=== PATIENT | female | born 1980 | race Caucasian/White ===

== ENCOUNTER 2016-10-16 16:06 | Emergency (ER) | payer MEDICAID, OTHER ==
--- NOTE | 2016-10-16 16:24 | ER Document Report ---
ED Medical Screen (RME) - General Stated Complaint: JAW PAIN/SWELLING Notes: Patient is a 35-year-old female presents emergency Department complaining of difficulty swallowing/sore throat for the past 2 weeks but is worse over the past 7 days. Denies any fevers, chills. Patient states that she never received a MMR vaccine. Neck with range of motion. Patient nontoxic looking. I have greeted and performed a rapid initial assessment of this patient. A comprehensive ED assessment and evaluation of the patient, analysis of test results and completion of the medical decision making process will be conducted by additional ED providers. Physical Exam - Vital signs Vitals: Temp Pulse Resp BP Pulse Ox 98.4 F 84 16 141/74 H 95 10/16/16 16:17 10/16/16 16:17 10/16/16 16:17 10/16/16 16:17 10/16/16 16:17 Course - Vital Signs Vital signs: Temp Pulse Resp BP Pulse Ox 98.4 F 84 16 141/74 H 95 10/16/16 16:17 10/16/16 16:17 10/16/16 16:17 10/16/16 16:17 10/16/16 16:17
--- NOTE | 2016-10-16 18:26 | ER Document Report ---
ED Flu Like - General Chief Complaint: Sore Throat Stated Complaint: JAW PAIN/SWELLING Time seen by provider: 17:50 Mode of Arrival: Ambulatory Information source: Patient Notes: 35-year-old female presents to ED for cough runny nose postnasal drip with sore throat for 2 weeks she states is getting worse in the last 7 days. No fevers. Last menstrual period was TRAVEL OUTSIDE OF THE [place] IN LAST 30 DAYS: No - HPI Onset: Other - 2 weeks Timing/Duration: Constant Quality of pain: Achy, Other - Sore throat Severity: Moderate Pain Level: 3 CO exposure: No Associated symptoms: Body/muscle aches, Rhinnorhea, Sinus pain/drainage, Sore throat Similar symptoms previously: Yes Recently seen / treated by doctor: No - Related Data Allergies/Adverse Reactions: latex Allergy (Verified 10/16/16 16:22) pantoprazole [From Protonix] Allergy (Verified 10/16/16 16:22) Past Medical History - General Information source: Patient - Social History Smoking Status: Never Smoker Cigarette use (# per day): No Chew tobacco use (# tins/day): No Smoking Education Provided: No Frequency of alcohol use: None Drug Abuse: None Family History: Reviewed & Not Pertinent Patient has suicidal ideation: No Patient has homicidal ideation: No - Past Medical History Cardiac Medical History: Reports: None Pulmonary Medical History: Reports: None EENT Medical History: Reports: None Neurological Medical History: Reports: None Endocrine Medical History: Reports: None Renal/ Medical History: Reports: None Malignancy Medical History: Reports: None GI Medical History: Reports: None Musculoskeltal Medical History: Reports None Skin Medical History: Reports None Psychiatric Medical History: Reports: None Traumatic Medical History: Reports: None Infectious Medical History: Reports: None Surgical Hx: Negative Past Surgical History: Reports: None Review of Systems - Review of Systems Constitutional: Recent illness EENT: Nose discharge, Sinus discharge, Throat pain, Difficulty swallowing Cardiovascular: No symptoms reported Respiratory: No symptoms reported Gastrointestinal: No symptoms reported Genitourinary: No symptoms reported Female Genitourinary: No symptoms reported Musculoskeletal: No symptoms reported Skin: No symptoms reported Hematologic/Lymphatic: No symptoms reported Neurological/Psychological: No symptoms reported -: Yes All other systems reviewed and negative Physical Exam - Vital signs Vitals: Temp Pulse Resp BP Pulse Ox 98.4 F 84 16 141/74 H 95 10/16/16 16:17 10/16/16 16:17 10/16/16 16:17 10/16/16 16:17 10/16/16 16:17 Interpretation: Normal - General General appearance: Appears well, Alert - HEENT Head: Normocephalic, Atraumatic Eyes: Normal Pupils: PERRL Ears: Normal External canal: Normal Tympanic membrane: Normal Sinus: Normal Nasal: Purulent discharge, Swelling Mouth/Lips: Normal Mucous membranes: Normal Pharynx: Post nasal drainage. No: Erythema, Exudate, Peritonsillar abscess, Tonsillar hypertrophy, Uvular edema, Potential airway comprom. Neck: Normal - Respiratory Respiratory status: No respiratory distress Chest status: Nontender Breath sounds: Nonproductive cough Chest palpation: Normal - Cardiovascular Rhythm: Regular Heart sounds: Normal auscultation Murmur: No - Abdominal Inspection: Normal Distension: No distension Bowel sounds: Normal Tenderness: Nontender Organomegaly: No organomegaly - Back Back: Normal, Nontender - Extremities General upper extremity: Normal inspection, Nontender, Normal color, Normal ROM , Normal temperature General lower extremity: Normal inspection, Nontender, Normal color, Normal ROM , Normal temperature, Normal weight bearing. No: Arash's sign - Neurological Neuro grossly intact: Yes Cognition: Normal Orientation: AAOx4 [place] Coma Scale Eye Opening: Spontaneous [place] Coma Scale Verbal: Oriented [place] Coma Scale Motor: Obeys Commands [place] Coma Scale Total: 15 Speech: Normal Motor strength normal: LUE, RUE, LLE, RLE Sensory: Normal - Psychological Associated symptoms: Normal affect, Normal mood - Skin Skin Temperature: Warm Skin Moisture: Dry Skin Color: Normal Course - Re-evaluation Re-evalutation: 10/16/16 18:[address] Thomas as the patient states that the right side of her face is swollen. He states there might be minimal swelling but nothing of concern discussed limiting drops and Cipro can do with the patient. Patient verbalized understanding. - Vital Signs Vital signs: Temp Pulse Resp BP Pulse Ox 98.4 F 84 16 141/74 H 95 10/16/16 16:17 10/16/16 16:17 10/16/16 16:17 10/16/16 16:17 10/16/16 16:17 Discharge - Discharge Clinical Impression: Upper respiratory infection Qualifiers: URI type: unspecified URI Qualified Code(s): J06.9 - Acute upper respiratory infection, unspecified Condition: Stable Disposition: HOME, SELF-CARE Instructions: Family Physicians / Practices Additional Instructions: UPPER RESPIRATORY ILLNESS: You have a viral infection of the respiratory passages -- a "cold." This common infection causes nasal congestion, drainage, and often sore throat and cough. It is highly contagious. The disease usually lasts about 10 to 14 days. There is no "cure" for the viral infection -- it must run its course. If there is a complication, such as bacterial infection in the nose, sinuses, middle ear, or bronchial tubes, antibiotics may be required. The antibiotics won't affect the virus. Drink plenty of fluids. A humidifier may help. An expectorant medication or decongestant may make you more comfortable. Use acetaminophen or ibuprofen for fever or aches. See the doctor if fever persists over two days, if there is any significant worsening of your symptoms, or if you simply fail to improve as expected. DECONGESTANT MEDICATION: A decongestant medicine has been suggested. Often this medicine is combined in the same tablet with an antihistamine or expectorant. This type of medicine is helpful in treating a bad cold or sinus condition, as well as in treatment of the nasal congestion of hay fever. It is not of much benefit for lung infections. Decongestant medicines are related to stimulants. They can cause an increase in blood pressure and heart rate. Persons with heart disease and high blood pressure should not take decongestants without discussing this with the physician. If you develop palpitations, chest pain, headache, or tremors, stop the medicine and consult your physician. COUGH-SUPPRESSANT & EXPECTORANT MEDICATION: You are to use a cough medication as needed for relief of symptoms. This medicine is a combination of an expectorant (to make the mucous thinner and more easily "coughed up") and a cough suppressant (to reduce the frequency of coughing). The cough-suppressant medicine is related to narcotics. You may experience mild nausea and sleepiness. Some patients who are very sensitive to narcotics may have stomach pain from this medicine. Taking the medicine with food reduces these side effects. Do not drive or work with machinery until you know how this medicine affects you. The expectorant should have no side effects. Iodine-containing expectorants (such as organidin) should not be taken by persons with active thyroid disease unless approved by your doctor. Call the doctor if you develop shortness of breath, hives, rash, itching, lightheadedness, or severe nausea and vomiting. USE OF ACETAMINOPHEN (Tylenol): Acetaminophen may be taken for pain relief or fever control. It's much safer than aspirin, offering a wider range of "safe" dosages. It is safe during . Some brand names are Tylenol, Panadol, Datril, Anacin 3, Tempra, and Liquiprin. Acetaminophen can be repeated every four hours. The following are maximum recommended dosages: >89 pounds or adults 650 mg to 900 mg Acetaminophen can be repeated every four hours. Maximum dose not to exceed 4000 mg a day. SMOKING: If you smoke, you should stop smoking. The tar and chemicals in cigarette smoke are harmful. Smoking has been shown to cause: emphysema chronic bronchitis lung cancer mouth and throat cancer stomach and pancreas cancer premature aging defects In addition, smoking increases ear and lung infections in children of smokers. FOLLOW-UP CARE: If you have been referred to a physician for follow-up care, call the physician s office for an appointment as you were instructed or within the next two days. If you experience worsening or a significant change in your symptoms, notify the physician immediately or return to the Emergency Department at any time for re-evaluation. Forms: Elevated Blood Pressure, Return to Work
[2016-10-16 19:23] VITALS: BP 138/74
== END 2016-10-16 19:00 | disposition home or self-care (01) ==
LOC: ER 16:06
DX: J06.9 Acute upper respiratory infection, unspecified (principal); J02.9 Acute pharyngitis, unspecified; R68.84 Jaw pain
CPT/HCPCS: 87070; 87804; 87880; 99283

== ENCOUNTER 2018-09-02 14:57 | Emergency (ER) | payer SELFPAY ==
--- NOTE | 2018-09-02 17:21 | ER Document Report ---
ED Extremity Problem, Lower - General Chief Complaint: Leg Pain Stated Complaint: LEG PAIN Time Seen by Provider: 09/02/18 17:07 Primary Care Provider: SANDIP KING MD [ACTIVE STAFF] - 09/04/18 Mode of Arrival: Ambulatory Information source: Patient Notes: 37-year-old very obese female with a weight of 130.8 kg and a BMI of 45.2 presented to ED for complaint of pain to the right lower leg. She states she has had burning and pain with ambulation this started yesterday. She states she has been seen by her primary care doctor for stasis ulcers and varicose veins but the legs have gotten larger and more painful with redness to the anterior medial aspect of the right lower leg. She also has erythema and swelling to the left anterior lower leg. Patient is alert and oriented respirations regular and unlabored speaking in full sentences walks with. TRAVEL OUTSIDE OF THE [place] IN LAST 30 DAYS: No - HPI Patient complains to provider of: Pain, Swelling. No: Injury Location: Leg Occurred: Yesterday Onset/Duration: Gradual Quality of pain: Burning Severity: Moderate Pain Level: 3 Recent injury: No Associated symptoms: Painful ambulation, Other - Pulling and erythema to the front of bilateral legs to the medial aspect of the right lower leg Exacerbated by: Movement, Walking Relieved by: Nothing - Related Data Allergies/Adverse Reactions: latex Allergy (Verified 09/02/18 14:58) pantoprazole [From Protonix] Allergy (Verified 09/02/18 14:58) Past Medical History - General Information source: Patient - Social History Smoking Status: Never Smoker Chew tobacco use (# tins/day): No Frequency of alcohol use: Occasional Drug Abuse: None Lives with: Alone - His son Family History: Reviewed & Not Pertinent Patient has suicidal ideation: No Patient has homicidal ideation: No - Past Medical History Cardiac Medical History: Reports: None Pulmonary Medical History: Reports: None EENT Medical History: Reports: None Neurological Medical History: Reports: None Endocrine Medical History: Reports: None Renal/ Medical History: Reports: None Skin Medical History: Reports Other - Stasis ulcers with varicose veins to bilateral lower extremities Psychiatric Medical History: Reports: None Traumatic Medical History: Reports: None Infectious Medical History: Reports: None Past Surgical History: Reports: Hx Gynecologic Surgery - Vaginal wall repair, E sure, Hx Orthopedic Surgery - Carpal tunnel, Hx Tonsillectomy Review of Systems - Review of Systems Constitutional: No symptoms reported EENT: No symptoms reported Cardiovascular: No symptoms reported Respiratory: No symptoms reported Gastrointestinal: No symptoms reported Genitourinary: No symptoms reported Female Genitourinary: No symptoms reported Musculoskeletal: Leg swelling, Ankle swelling, Other - Pain and erythema to bilateral lower legs Skin: No symptoms reported Hematologic/Lymphatic: No symptoms reported Neurological/Psychological: No symptoms reported Physical Exam - Vital signs Vitals: Temp Pulse Resp BP Pulse Ox 98.2 F 79 14 145/78 H 100 09/02/18 15:06 09/02/18 15:06 09/02/18 15:06 09/02/18 15:06 09/02/18 15:06 Interpretation: Normal - General General appearance: Appears well, Alert - HEENT Head: Normocephalic, Atraumatic Eyes: Normal Pupils: PERRL - Respiratory Respiratory status: No respiratory distress Chest status: Nontender Breath sounds: Normal Chest palpation: Normal - Cardiovascular Rhythm: Regular Heart sounds: Normal auscultation Murmur: No - Abdominal Inspection: Normal Distension: No distension Bowel sounds: Normal Tenderness: Nontender Organomegaly: No organomegaly - Back Back: Normal, Nontender - Extremities General upper extremity: Normal inspection, Nontender, Normal color, Normal ROM, Normal temperature General lower extremity: Normal ROM, Normal temperature, Normal weight bearing. No: Arash's sign Calf: Tender, Other - Erythematous swelling Ankle: Tender, Edema, Other - Erythematous Foot: Normal, Nontender - Neurological Neuro grossly intact: Yes Cognition: Normal Orientation: AAOx4 [place] Coma Scale Eye Opening: Spontaneous [place] Coma Scale Verbal: Oriented [place] Coma Scale Motor: Obeys Commands [place] Coma Scale Total: 15 Speech: Normal Motor strength normal: LUE, RUE, LLE, RLE Sensory: Normal - Psychological Associated symptoms: Normal affect, Normal mood - Skin Skin Temperature: Warm Skin Moisture: Dry Skin Color: Normal Course - Re-evaluation Re-evalutation: 09/03/18 01:59 Doppler was negative for any blood clots. Patient was treated with Keflex and discharged home with prescription for Keflex for her cellulitis to bilateral lower remedies and instructed him to follow-up with her primary doctor. Patient verbalized understanding and agreement with treatment plan. Patient also instructed to elevate her legs to decrease the swelling. - Vital Signs Vital signs: Temp Pulse Resp BP Pulse Ox 98.8 F 81 14 141/83 H 99 09/02/18 18:38 09/02/18 18:38 09/02/18 15:06 09/02/18 18:42 09/02/18 18:38 - Diagnostic Test Radiology reviewed: Image reviewed, Reports reviewed Discharge - Discharge Clinical Impression: Cellulitis of both lower extremities Condition: Stable Disposition: HOME, SELF-CARE Additional Instructions: CELLULITIS: You have an infection of your skin and underlying soft tissues called ce llulitis. This is due to bacteria, which can enter through any break in the skin, or even through an irritated hair follicle. Untreated, cellulitis will usually worsen. Antibiotics are required. Usually, warm packs or warm soaks, and elevation of the infected area are recommended. You should start getting better within 24 to 36 hours. Most infections respond quickly to the right medication. Follow-up care is important, however, to check for abscess (boil) formation, unsuspected foreign body, or resistant infection. If you develop fever, chills, or if the area of infection is becoming rapidly more swollen or painful, call the doctor at once. ANTIBIOTIC THERAPY: You have been given an antibiotic prescription. It's important that you take all the medication, unless instructed otherwise by your physician. Failure to complete the entire course can result in relapse of your condition. Common side effects of antibiotics include nausea, intestinal cramping, or diarrhea. Women may develop vaginal yeast infections, and babies can get yeast (thrush) in the mouth following the use of antibiotics. Contact your physician if you develop significant side effects from this medication. Allergy to this antibiotic can result in hives, wheezing, faintness, or itching. If symptoms of allergy occur, stop the medication and call the doctor. Cephalexin The antibiotic you've been prescribed is a member of the cephalosporin class. This type of antibiotic covers a wide variety of infections, including those of the skin, lungs, and urinary tract. It's useful for staph infections. This antibiotic is slightly similar to the penicillin family. In rare cases, a person who is allergic to penicillin will also be allergic to this medication. If you have had a severe allergic reaction to penicillin, and have not taken this antibiotic since that time, notify your doctor. Antibiotics which cover many germs ("broad spectrum" antibiotics) are more likely to cause diarrhea or "yeast" infections. Women prone to vaginal yeast problems may suffer an attack after taking this antibiotic. In infants, oral thrush (white spots "stuck" on the cheek) or yeast diaper rash may result. See your doctor if these problems occur. Call at once if you develop itching, hives, shortness of breath, or lightheadedness. Elevation & Warmth The area should be elevated as much as possible over the next 48 hours. Try to keep it above the level of your heart. Apply gentle heat (such as a heating pad or hot water bottle) for about 20 to 30 minutes about every two hours -- at least four times daily. Warmth and elevation will help you make a more rapid recovery, and will ease the pain considerably. FOLLOW-UP CARE: If you have been referred to a physician for follow-up care, call the physicians office for an appointment as you were instructed or within the next two days. If you experience worsening or a significant change in your symptoms, notify the physician immediately or return to the Emergency Department at any time for re-evaluation. Prescriptions: Cephalexin Monohydrate [Keflex 500 mg Capsule] 500 mg PO Q6H 5 Days capsule Forms: Elevated Blood Pressure Referrals: SANDIP KING MD [ACTIVE STAFF] - 09/04/18
[2018-09-02] MEDS ORDERED: CEPHALEXIN 500 MG CAPSULE PO ONE (18:36)
[2018-09-02 18:43] VITALS: BP 141/83
--- NOTE | 2018-09-03 13:17 | XCELERA REPORT ---
[address] [facility] [address] Lower Extremity Venous Evaluation Procedure: Color flow and duplex imaging bilaterally of the veins of the lower extremities as well as the Common Femoral veins. Right Sided Venous Evaluation Normal vessel filling wall to wall, compression and augmentation as well as Colour flow down to the infrageniculate veins. Left Sided Venous Evaluation Normal vessel filling wall to wall, compression and augmentation as well as Colour flow down to the infrageniculate veins. Interpretation Summary No duplex evidence of DVT or obstruction in the bilateral lower extremities. Name: LEILANI RAYA Age: 37 yrs Gender: Female : 1980 Patient Status: Emergency Patient Location: ER Study Date: 09/02/2018 05:42 PM Reason For Study: Pain and swelling Ordering Physician: EDGARDO TATE Performed By: Thad Goldstein : EDGARDO TATE > Moises Nunn
== END 2018-09-02 18:51 | disposition home or self-care (01) ==
LOC: ER 14:57
DX: L03.115 Cellulitis of right lower limb (principal); L03.116 Cellulitis of left lower limb; M79.661 Pain in right lower leg; Z91.040 Latex allergy status; Z88.8 Allergy status to other drugs, medicaments and biological substances
CPT/HCPCS: 93970; 99283

== ENCOUNTER 2019-01-07 21:04 | Emergency (ER) | payer SELFPAY ==
--- NOTE | 2019-01-07 22:37 | EKG REPORT ---
SEVERITY:- ABNORMAL ECG - SINUS RHYTHM INCOMPLETE RIGHT BUNDLE BRANCH BLOCK : Confirmed by: Ajith Murillo MD 07-Jan-2019 22:36:41
[2019-01-07 23:14] LABS: ABSOLUTE EOSINOPHILS # (AUTO) 0.1 10^3/uL (0.0-0.6); ABSOLUTE LYMPHOCYTES (AUTO) 1.8 10^3/uL (0.5-4.7); ABSOLUTE MONOCYTES (AUTO) 0.5 10^3/uL (0.1-1.4); ABSOLUTE NEUT (AUTO) 4.3 10^3/uL (1.7-8.2); BASOPHILS % (AUTO) 0.4 % (0-2); EOSINOPHILS % (AUTO) 1.3 % (0-6); HEMATOCRIT 36.8 % (36.0-47.0); HEMOGLOBIN 12.5 g/dL (12.0-15.5); MEAN CORPUSCULAR HGB CONC 33.9 g/dL (32.0-36.0); MEAN CORPUSCULAR VOLUME 83 fl (80-97); MONOCYTES % (AUTO) 7.2 % (3-13); PLATELET COUNT 231 10^3/uL (150-450); RED BLOOD COUNT 4.46 10^6/uL (3.72-5.28); RED CELL DISTRIBUTION WIDTH 15.1 % (11.5-14.0); SEGMENTED NEUTROPHILS % (AUTO) 64.1 % (42-78); TOTAL CELLS COUNTED % (AUTO) 100 %; WHITE BLOOD COUNT 6.7 10^3/uL (4.0-10.5)
[2019-01-07 23:22] LABS: ANION GAP 9 (5-19); BLOOD UREA NITROGEN 12 mg/dL (7-20); CALCIUM 9.2 mg/dL (8.4-10.2); CARBON DIOXIDE 27 mmol/L (22-30); CHLORIDE 103 mmol/L (98-107); GLUCOSE 95 mg/dL (75-110); SODIUM 139.3 mmol/L (137-145)
--- NOTE | 2019-01-07 23:30 | RADIOLOGY REPORT (SQ) ---
XR CHEST 1 VIEW HISTORY: Chest pain. COMPARISON: None. FINDINGS: The heart size is within normal limits. No consolidation, pleural effusion, or pneumothorax is seen. There are no acute bony findings. IMPRESSION: No evidence of acute cardiopulmonary disease.
[2019-01-07] MEDS ORDERED: ENOXAPARIN SODIUM INJ 150 MG/1 ML DISP.SYRIN SUBCUT SCH (23:45)
[2019-01-07] MEDS ORDERED: ASPIRIN 81 MG TABLET, CHEWABLE PO ONE (23:52)
[2019-01-07] MEDS ORDERED: ATORVASTATIN CALCIUM 80 MG TABLET PO ONE (23:52)
--- NOTE | 2019-01-08 00:17 | ER Document Report ---
ED General - General Chief Complaint: Chest Tightness Stated Complaint: CHEST TIGHTNESS Time Seen by Provider: 01/07/19 22:51 Primary Care Provider: SANDIP KNIG MD [Primary Care Provider] - Follow up as needed Notes: Patient is a 38-year-old female with a past medical history of morbid obesity, chronic venous stasis ulcers, who presents with complaints of an episode of chest pain that started earlier this evening it has spontaneously resolved. 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 States that it was severe when present. No exacerbating or alleviating factor. States that the symptoms have resolved spontaneously. Currently denies any symptoms. At the time of pain she did have associated shortness of breath and nausea as well as some mild diaphoresis. Denies any history of similar symptoms in the past. Denies any known history of coronary artery disease. Does not have a primary care doctor. TRAVEL OUTSIDE OF THE [place] IN LAST 30 DAYS: No - Related Data Allergies/Adverse Reactions: latex Allergy (Verified 09/02/18 14:58) pantoprazole [From Protonix] Allergy (Verified 09/02/18 14:58) Past Medical History - General Information source: Patient - Social History Smoking Status: Never Smoker Frequency of alcohol use: None Drug Abuse: None Lives with: Family Family History: Reviewed & Not Pertinent Patient has suicidal ideation: No Patient has homicidal ideation: No Renal/ Medical History: Denies: Hx Peritoneal Dialysis Past Surgical History: Reports: Hx Gynecologic Surgery - Vaginal wall repair, E sure, Hx Orthopedic Surgery - Carpal tunnel, Hx Tonsillectomy Review of Systems - Review of Systems Notes: Constitutional: Negative for fever. HENT: Negative for sore throat. Eyes: Negative for visual changes. Cardiovascular: Positive for chest pain. Respiratory: Positive for shortness of breath. Gastrointestinal: Negative for abdominal pain, vomiting or diarrhea. Genitourinary: Negative for dysuria. Musculoskeletal: Negative for back pain. Skin: Negative for rash. Neurological: Negative for headaches, weakness or numbness. 10 point ROS negative except as marked above and in HPI. Physical Exam - Vital signs Vitals: Temp Pulse Resp BP Pulse Ox 97.9 F 83 20 148/95 H 100 01/07/19 21:24 01/07/19 21:24 01/07/19 21:24 01/07/19 21:24 01/07/19 21:24 Interpretation: Hypertensive Notes: PHYSICAL EXAMINATION: GENERAL: Well-appearing, well-nourished and in no acute distress. HEAD: Atraumatic, normocephalic. EYES: Pupils equal round and reactive to light, extraocular movements intact, sclera anicteric, conjunctiva are normal. ENT: nares patent, oropharynx clear without exudates. Moist mucous membranes. NECK: Normal range of motion, supple without lymphadenopathy LUNGS: Breath sounds clear to auscultation bilaterally and equal. No wheezes rales or rhonchi. HEART: Regular rate and rhythm without murmurs ABDOMEN: Soft, morbidly obese abdomen, nontender, normoactive bowel sounds. No guarding, no rebound. No masses appreciated. EXTREMITIES: Normal range of motion, no pitting or edema. No cyanosis. NEUROLOGICAL: No focal neurological deficits. Moves all extremities spontaneously and on command. PSYCH: Normal mood, normal affect. SKIN: Warm, Dry, normal turgor, no rashes or lesions noted. 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 Symptoms have completely resolved without intervention, patient currently denies any symptoms of any kind. Initial EKG without ischemic changes. Initial troponin is however elevated at 0.472 certainly concerning to given that this troponin was obtained proximal 1 hour after the onset of patient's pain. She has been given aspirin, atorvastatin, enoxaparin. We do not have the ability to perform cardiac catheterization here until Tuesday and patient has subsequently been transferred to [facility]. She has been accepted by Dr. Howard. Will continue to monitor. - Vital Signs Vital signs: Temp Pulse Resp BP Pulse Ox 98.2 F 83 18 163/86 H 100 01/08/19 02:01 01/07/19 21:24 01/08/19 02:01 01/08/19 02:01 01/08/19 02:01 - Laboratory Result Diagrams: 01/07/19 22:45 01/07/19 22:45 Laboratory results interpreted by me: 01/07/19 22:45 RDW 15.1 H - Diagnostic Test Radiology reviewed: Image reviewed, Reports reviewed Radiology results interpreted by me: 01/08/19 00:22 Chest x-ray: No acute infiltrate pneumothorax - EKG Interpretation by Me Additional EKG results interpreted by me: 01/08/19 00:22 Sinus rhythm, rate 68, no ST elevations or depressions. QTC is 447 Discharge - Discharge Clinical Impression: NSTEMI (non-ST elevated myocardial infarction) Condition: Fair Disposition: COUNTS INCLUDE 234 BEDS AT THE [facility] Referrals: SANDIP KING MD [Primary Care Provider] - Follow up as needed
[2019-01-08 02:16] VITALS: BP 163/86
== END 2019-01-08 02:25 | disposition short-term general hospital (02) ==
LOC: ER 21:04
DX: I21.4 Non-ST elevation (NSTEMI) myocardial infarction (principal); R07.89 Other chest pain; R06.02 Shortness of breath; R11.0 Nausea; R61 Generalized hyperhidrosis; R68.84 Jaw pain; M79.601 Pain in right arm; M79.602 Pain in left arm; Z91.040 Latex allergy status; Z88.8 Allergy status to other drugs, medicaments and biological substances
CPT/HCPCS: 93005; 99285; 96372; 36415; 85025; 80048; 84484; 71045; 93010; J1650

== ENCOUNTER 2019-07-26 14:35 | Emergency (ER) | payer SELFPAY ==
--- NOTE | 2019-07-26 15:24 | ER Document Report ---
ED Medical Screen (RME) - General Chief Complaint: Leg Pain Stated Complaint: LEG PAIN Time Seen by Provider: 07/26/19 15:20 Primary Care Provider: SANDIP KING MD [Primary Care Provider] - Follow up as needed Mode of Arrival: Ambulatory Information source: Patient Notes: 38-year-old female with history of PVD and cellulitis presents emergency department with right lower leg pain swelling erythema. She denies fever vomiting diarrhea. Reports symptoms started Mertens Nelly. She is taking Septra and Flagyl currently for UTI. I have greeted and performed a rapid initial assessment of this patient. A comprehensive ED assessment and evaluation of the patient, analysis of test results and completion of the medical decision making process will be conducted by additional ED providers. TRAVEL OUTSIDE OF THE [place] IN LAST 30 DAYS: No - Related Data Allergies/Adverse Reactions: latex Allergy (Verified 07/26/19 15:15) pantoprazole [From Protonix] Allergy (Verified 07/26/19 15:15) Past Medical History - Social History Chew tobacco use (# tins/day): No Frequency of alcohol use: Rare Drug Abuse: None Renal/ Medical History: Denies: Hx Peritoneal Dialysis Past Surgical History: Reports: Hx Gynecologic Surgery - Vaginal wall repair, E sure, Hx Orthopedic Surgery - Carpal tunnel, Hx Tonsillectomy Physical Exam - Vital signs Vitals: Temp Pulse Resp BP Pulse Ox 98.5 F 78 16 147/95 H 98 07/26/19 14:39 07/26/19 14:39 07/26/19 14:39 07/26/19 14:39 07/26/19 14:39 Course - Vital Signs Vital signs: Temp Pulse Resp BP Pulse Ox 98.5 F 78 16 147/95 H 98 07/26/19 14:39 07/26/19 14:39 07/26/19 14:39 07/26/19 14:39 07/26/19 14:39 Doctor's Discharge - Discharge Referrals: SANDIP KING MD [Primary Care Provider] - Follow up as needed
[2019-07-26 15:53] LABS: ABSOLUTE EOSINOPHILS # (AUTO) 0.1 10^3/uL (0.0-0.6); ABSOLUTE LYMPHOCYTES (AUTO) 0.9 10^3/uL (0.5-4.7); ABSOLUTE MONOCYTES (AUTO) 0.6 10^3/uL (0.1-1.4); ABSOLUTE NEUT (AUTO) 4.3 10^3/uL (1.7-8.2); BASOPHILS % (AUTO) 0.5 % (0-2); EOSINOPHILS % (AUTO) 1.5 % (0-6); HEMATOCRIT 40.7 % (36.0-47.0); HEMOGLOBIN 13.7 g/dL (12.0-15.5); LYMPHOCYTES % (AUTO) 15.8 % (13-45); MEAN CORPUSCULAR HEMOGLOBIN 28.3 pg (27.0-33.4); MEAN CORPUSCULAR HGB CONC 33.7 g/dL (32.0-36.0); MEAN CORPUSCULAR VOLUME 84 fl (80-97); MONOCYTES % (AUTO) 10.5 % (3-13); PLATELET COUNT 219 10^3/uL (150-450); RED BLOOD COUNT 4.85 10^6/uL (3.72-5.28); RED CELL DISTRIBUTION WIDTH 14.8 % (11.5-14.0); SEGMENTED NEUTROPHILS % (AUTO) 71.7 % (42-78); TOTAL CELLS COUNTED % (AUTO) 100 %; WHITE BLOOD COUNT 5.9 10^3/uL (4.0-10.5)
[2019-07-26 16:17] LABS: APPEARANCE,URINE SLIGHTLY-CLOUDY; BILIRUBIN,URINE NEGATIVE (NEGATIVE); COLOR,URINE YELLOW; GLUCOSE, URINE NEGATIVE (NEGATIVE); KETONES,URINE NEGATIVE (NEGATIVE); LEUKOCYTE ESTERASE,URINE SMALL (NEGATIVE); NITRITE,URINE NEGATIVE (NEGATIVE); PROTEIN,URINE NEGATIVE (NEGATIVE); URINE SPECIFIC GRAVITY 1.028; UROBILINOGEN,URINE NEGATIVE mg/dL (<2.0)
[2019-07-26 16:21] LABS: ALBUMIN 4.3 g/dL (3.5-5.0); ALKALINE PHOSPHATASE 80 U/L (38-126); ANION GAP 13 (5-19); ASPARTATE AMINO TRANSFERASE 26 U/L (14-36); BILIRUBIN,DIRECT 0.3 mg/dL (0.0-0.4); BILIRUBIN,TOTAL 0.4 mg/dL (0.2-1.3); BLOOD UREA NITROGEN 16 mg/dL (7-20); CALCIUM 9.1 mg/dL (8.4-10.2); CARBON DIOXIDE 23 mmol/L (22-30); CHLORIDE 102 mmol/L (98-107); GLUCOSE 95 mg/dL (75-110); POTASSIUM 4.2 mmol/L (3.6-5.0); TOTAL PROTEIN 7.6 g/dL (6.3-8.2)
--- NOTE | 2019-07-26 17:33 | RADIOLOGY REPORT (SQ) ---
EXAM DESCRIPTION: VENOUS UNILATERAL LOWER COMPLETED DATE/TIME: 07/26/2019 5:05 pm REASON FOR STUDY: leg pain and swelling COMPARISON: None. TECHNIQUE: Dynamic and static roca scale and color images acquired of the right leg venous system. S elected spectral images acquired with additional compression and augmentation maneuvers. The contrala teral common femoral vein and saphenofemoral junction were also imaged. Images stored on PACS. LIMITATIONS: None. FINDINGS: COMMON FEMORAL: Normal phasicity, compression and augmentation. No visualized echogenic ma terial on roca scale. No defects on color images. FEMORAL: Normal compression and augmentation. No visualized echogenic material on roca scale. No defe cts on color images. POPLITEAL: Normal compression, augmentation. No visualized echogenic material on roca scale. No defec ts on color images. CALF VESSELS: Normal compression, augmentation. No visualized echogenic material on roca scale. No de fects on color images. GSV and SSV: Normal compression, augmentation. No visualized echogenic material on roca scale. No def ects on color images. ANY DEEP VENOUS INSUFFICIENCY: Not evaluated. ANY EVIDENCE OF POPLITEAL CYST: No. OTHER: No other significant finding. CONTRALATERAL COMMON FEMORAL VEIN AND SAPHENOFEMORAL JUNCTION: Normal phasicity, compression and augmentation. No visualized echogenic material on roca scale. No de fects on color images. IMPRESSION: NO EVIDENCE OF DVT OR SVT IN THE RIGHT LEG. TECHNICAL DOCUMENTATION: JOB ID: [id number] [employer]- All Rights Reserved Reading location - IP/workstation name: [email or web address]
--- NOTE | 2019-07-26 21:15 | ER Document Report ---
ED Extremity Problem, Lower - General Chief Complaint: Leg Swelling Stated Complaint: LEG PAIN Time Seen by Provider: 07/26/19 15:20 Primary Care Provider: SANDIP KING MD [Primary Care Provider] - Follow up as needed Mode of Arrival: Ambulatory Information source: Patient - Denies fever and chills TRAVEL OUTSIDE OF THE [place] IN LAST 30 DAYS: No - HPI Patient complains to provider of: Swelling, Other - Erythema right lower extre mity. Patient has a history of cellulitis in her right lower extremity 6 months ago. There is been no insect bite or trauma to her lower extremity. Occurred: Other Severity: Moderate Pain Level: 4 - Related Data Allergies/Adverse Reactions: latex Allergy (Verified 07/26/19 15:35) pantoprazole [From Protonix] Allergy (Verified 07/26/19 15:35) Past Medical History - General Information source: Patient - Social History Smoking Status: Never Smoker Chew tobacco use (# tins/day): No Frequency of alcohol use: Rare Drug Abuse: None Family History: Reviewed & Not Pertinent Patient has suicidal ideation: No Patient has homicidal ideation: No - Medical History Medical History: Other - History of cellulitis and venous insufficiency of lower extremities - Past Medical History Cardiac Medical History: Reports: None Renal/ Medical History: Denies: Hx Peritoneal Dialysis Skin Medical History: Reports Hx Cellulitis Past Surgical History: Reports: Hx Gynecologic Surgery - Vaginal wall repair, E sure, Hx Orthopedic Surgery - Carpal tunnel, Hx Tonsillectomy - Immunizations Immunizations up to date: Yes Review of Systems - Review of Systems Genitourinary: Other - Urinary tract infection. Currently under treatment on metronidazole and Bactrim DS. Skin: See HPI Physical Exam - Vital signs Vitals: Temp Pulse Resp BP Pulse Ox 98.5 F 78 16 147/95 H 98 07/26/19 14:39 07/26/19 14:39 07/26/19 14:39 07/26/19 14:39 07/26/19 14:39 Interpretation: Normal - General General appearance: Appears well, Alert - HEENT Head: Normocephalic, Atraumatic Eyes: Normal Pupils: PERRL - Respiratory Respiratory status: No respiratory distress Chest status: Nontender Breath sounds: Normal Chest palpation: Normal - Cardiovascular Rhythm: Regular Heart sounds: Normal auscultation Murmur: No - Abdominal Inspection: Normal Distension: No distension Bowel sounds: Normal Tenderness: Nontender Organomegaly: No organomegaly - Back Back: Normal, Nontender - Extremities General upper extremity: Normal inspection, Nontender, Normal color, Normal ROM, Normal temperature General lower extremity: Normal inspection, Nontender, Normal color, Normal ROM, Normal temperature, Normal weight bearing, Other - Right lower extremity with anterior redness and warmth with mild tenderness. Swollen calves bilateral. No Homans sign.. No: Arash's sign Left calf in cm: 21 Right calf in cm: 22 - Neurological Neuro grossly intact: Yes Cognition: Normal Orientation: AAOx4 [place] Coma Scale Eye Opening: Spontaneous Alina Coma Scale Verbal: Oriented Alina Coma Scale Motor: Obeys Commands Alina Coma Scale Total: 15 Speech: Normal Motor strength normal: LUE, RUE, LLE, RLE Sensory: Normal - Psychological Associated symptoms: Normal affect, Normal mood - Skin Skin Temperature: Warm - Written skin in the anterior lower tibial surface of the right lower extremity. Not circumferential only on the 50% anterior section of the lower extremity. Skin Moisture: Dry Skin Color: Normal Course - Vital Signs Vital signs: Temp Pulse Resp BP Pulse Ox 98.5 F 78 16 147/95 H 98 07/26/19 14:39 07/26/19 14:39 07/26/19 14:39 07/26/19 14:39 07/26/19 14:39 - Laboratory Result Diagrams: 07/26/19 15:41 07/26/19 15:41 Laboratory results interpreted by me: 07/26/19 07/26/19 15:41 15:50 RDW 14.8 H Ur Leukocyte Esterase SMALL H - Diagnostic Test Radiology reviewed: Image reviewed, Reports reviewed Discharge - Discharge Clinical Impression: Cellulitis Condition: Fair Disposition: HOME, SELF-CARE Additional Instructions: Cellulitis You have an infection of your skin and underlying soft tissues called cellulitis. This is due to bacteria, which can enter through any break in the skin, or even through an irritated hair follicle. Untreated, cellulitis will usually worsen. Antibiotics are required. Usually, warm packs or warm soaks, and elevation of the infected area are recommended. You should start getting better within 24 to 36 hours. Most infections respond quickly to the right medication. Follow-up care is important, however, to check for abscess (boil) formation, unsuspected foreign body, or resistant infection. If you develop fever, chills, or if the area of infection is becoming rapidly more swollen or painful, call the doctor at once. Prescriptions: Clindamycin HCl 300 mg PO TID #30 capsule Referrals: SANDIP KING MD [Primary Care Provider] - Follow up as needed
[2019-07-26] MEDS ORDERED: CLINDAMYCIN 600 MG/D5W RTU 600 MG/50 ML RTUPB IV ONE (21:28)
[2019-07-26 23:48] VITALS: BP 129/74
== END 2019-07-26 23:49 | disposition home or self-care (01) ==
LOC: ER 14:35
DX: L03.115 Cellulitis of right lower limb (principal); Z91.040 Latex allergy status
CPT/HCPCS: 36415; 80053; 81001; 81025; 85025; 87040; 93971; 96365; 99284

== ENCOUNTER 2019-10-12 08:20 | Day surgery (SDC) | payer MEDICAID ==
[2019-10-05 11:01] LABS: HEMOGLOBIN 13.5 g/dL (12.0-15.5); MEAN CORPUSCULAR HEMOGLOBIN 29.5 pg (27.0-33.4); MEAN CORPUSCULAR HGB CONC 35.4 g/dL (32.0-36.0); MEAN CORPUSCULAR VOLUME 83 fl (80-97); PLATELET COUNT 241 10^3/uL (150-450); RED BLOOD COUNT 4.57 10^6/uL (3.72-5.28); RED CELL DISTRIBUTION WIDTH 14.9 % (11.5-14.0); WHITE BLOOD COUNT 7.8 10^3/uL (4.0-10.5)
[2019-10-05 11:04] LABS: APPEARANCE,URINE SLIGHTLY-CLOUDY; BILIRUBIN,URINE NEGATIVE (NEGATIVE); COLOR,URINE YELLOW; GLUCOSE, URINE NEGATIVE (NEGATIVE); KETONES,URINE 20 mg/dL (NEGATIVE); LEUKOCYTE ESTERASE,URINE NEGATIVE (NEGATIVE); NITRITE,URINE NEGATIVE (NEGATIVE); PROTEIN,URINE NEGATIVE (NEGATIVE); URINE SPECIFIC GRAVITY 1.015; UROBILINOGEN,URINE NEGATIVE mg/dL (<2.0)
[~2019-10-12 08:20] MED LIST: FENTANYL CITRATE INJ/PF 100 MCG/2 ML AMPUL ONE; MIDAZOLAM 2 MG/2 ML INJ ONE; ONDANSETRON HCL INJ/PF 4 MG/2 ML SDV ONE; PROPOFOL INJ 200 MG/20 ML VIAL IV ONE
[2019-10-12] MEDS ORDERED: DIPHENHYDRAMINE HCL 50 MG/ML VIAL IV PRN (10:49)
[2019-10-12] MEDS ORDERED: MEPERIDINE HCL/PF INJ 25 MG/1 ML DISP.SYRIN IV PRN (10:49)
[2019-10-12] MEDS ORDERED: PROMETHAZINE HCL INJ 25 MG/1 ML VIAL IV PRN ×2 (10:49)
[2019-10-12] MEDS ORDERED: MORPHINE SULFATE 10 MG/ML INJ IV PRN (10:49)
[2019-10-12] MEDS ORDERED: ONDANSETRON HCL INJ/PF 4 MG/2 ML SDV IV PRN (10:49)
[2019-10-12] MEDS ORDERED: FENTANYL CITRATE INJ/PF 100 MCG/2 ML AMPUL IV PRN ×3 (10:49)
[2019-10-12] MEDS ORDERED: RINGERS SOLUTION,LACTATED 1,000 ML IV PRN (10:57)
[2019-10-12] MEDS ORDERED: OXYCODONE-ACETAMINOPHEN 5-325 MG TABLET PO PRN ×2 (10:57)
[2019-10-12] MEDS ORDERED: KETOROLAC TROMETHAMINE INJ/PF 30 MG/1 ML SDV IV PRN (10:57)
[2019-10-12] MEDS ORDERED: IBUPROFEN 800 MG TABLET PO PRN (10:57)
--- NOTE | 2019-10-12 11:00 | Operative Report ---
Operative Report DATE OF SURGERY: 10/12/19 PREOPERATIVE DIAGNOSIS: Heavy menses POSTOPERATIVE DIAGNOSIS: Heavy menses OPERATION: Hysteroscopy D&C and NovaSure ablation SURGEON: SHADY EVANS ANESTHESIA: GA TISSUE REMOVED OR ALTERED: Uterine contents COMPLICATIONS: None ESTIMATED BLOOD LOSS: None INTRAOPERATIVE FINDINGS: Uterine cavity is 4 cm in length and 4-1/2 cm in width PROCEDURE: Patient was taken the OR and placed in supine position. General anesthesia was induced. She is placed in a low dorsolithotomy position using Bill stirrups. Perineum and vagina were prepared and draped in sterile fashion. Her bladder had been emptied previously and did not need catheterization. A weighted speculum was placed in the vagina and the anterior lip cervix was grasped with a tenaculum. The cervix and uterus were sounded to 8 cm before and after the case. Cervix was gently dilated. Hysteroscopy revealed an empty uterine cavity. Endocervical and endometrial curettings were obtained. The NovaSure device was placed tested and fired. Length was 4 cm and the width was 4.5 cm. There were no complications. At the end of the case all instruments were removed. She is placed back in supine position and taken recovery in stable condition.
[2019-10-12] MEDS ORDERED: KETOROLAC TROMETHAMINE INJ/PF 30 MG/1 ML SDV ONE (11:12)
[2019-10-12] MEDS ORDERED: SUCCINYLCHOLINE CHLORIDE INJ 200 MG/10 ML VIAL ONE (11:14)
[2019-10-12] MEDS ORDERED: FENTANYL CITRATE INJ/PF 100 MCG/2 ML AMPUL ONE (11:20)
[2019-10-12] MEDS ORDERED: ACETAMINOPHEN 1,000 MG/100 ML RTUPB IV ONE ×2 (12:02→12:15)
[2019-10-12] MEDS ORDERED: OXYCODONE-ACETAMINOPHEN 5-325 MG TABLET ONE (12:29)
[2019-10-12] MEDS ORDERED: ONDANSETRON HCL INJ/PF 4 MG/2 ML SDV ONE (12:38)
[2019-10-12 13:40] VITALS: BP 134/78
== END 2019-10-12 13:40 | disposition home or self-care (01) ==
LOC: OROUT 08:20
PROVIDERS: ATTEND Obstetrics & Gynecology
DX: N93.9 Abnormal uterine and vaginal bleeding, unspecified (principal); N92.0 Excessive and frequent menstruation with regular cycle; E66.9 Obesity, unspecified; Z79.899 Other long term (current) drug therapy
CPT/HCPCS: 36415; 85027; 81025; 81001; 88305 ×2; 00952; 58563; J2250; J3010; J1885; J0330; J2405; J2704; J0131; 952

== ENCOUNTER → 2020-01-18 | Outpatient (CLI) | payer MEDICAID ==
--- NOTE | 2020-01-18 15:25 | RADIOLOGY REPORT (SQ) ---
EXAM DESCRIPTION: NM HIDA SCAN WITH CCK IMAGES COMPLETED DATE/TIME: 01/18/2020 2:38 pm REASON FOR STUDY: OTHER SPECIFIED DISEASES OF GALLBLADDER (K82.8) K82.8 OTHER SPECIFIED DISEASES OF GALLBLADDER COMPARISON: None. RADIONUCLIDE AND DOSE: DOSAGE RADIONUCLIDE: 5 millicuries Tc99m Mebrofenin. DOSAGE CCK: 2.5 micrograms. DOSAGE MORPHINE: Not required. The route of agent administration: Intravenous TECHNIQUE: Serial imaging right upper quadrant up to 60 minutes following injection of radionuclide. CCK injected after gallbladder visualized. LIMITATIONS: None. FINDINGS: LIVER: Normal visualization without areas of photopenia. INTRAHEPATIC BILE DUCTS: Normal size and no delay in visualization. COMMON BILE DUCT: Normal without dilatation. GALLBLADDER: Normal visualization. Calculated ejection fraction of 2%. Normal range is greater terrell n 35%. PHYSICAL RESPONSE: Patients presenting complaint was reproduced. OTHER: No other significant finding. IMPRESSION: Biliary dyskinesis with a gallbladder ejection fraction 2% where 35% or greater is consi dered normal. Patient's symptoms were reproduced with CCK administration. TECHNICAL DOCUMENTATION: JOB ID: [id number] [employer]- All Rights Reserved Reading location - IP/workstation name: [email or web address]
== END ==
LOC: RAD 12:29
PROVIDERS: ATTEND Obstetrics & Gynecology
DX: K82.8 Other specified diseases of gallbladder (principal)
CPT/HCPCS: 78227; J2805; A9537; Q9969

== ENCOUNTER 2020-01-28 07:18 | Day surgery (SDC) | payer MEDICAID ==
[2020-01-24 11:23] LABS: HEMATOCRIT 38.7 % (36.0-47.0); HEMOGLOBIN 13.4 g/dL (12.0-15.5); MEAN CORPUSCULAR HEMOGLOBIN 28.6 pg (27.0-33.4); MEAN CORPUSCULAR HGB CONC 34.6 g/dL (32.0-36.0); MEAN CORPUSCULAR VOLUME 83 fl (80-97); PLATELET COUNT 241 10^3/uL (150-450); RED BLOOD COUNT 4.68 10^6/uL (3.72-5.28); RED CELL DISTRIBUTION WIDTH 14.1 % (11.5-14.0); WHITE BLOOD COUNT 7.3 10^3/uL (4.0-10.5)
[2020-01-24 11:26] LABS: APPEARANCE,URINE CLEAR; BILIRUBIN,URINE NEGATIVE (NEGATIVE); COLOR,URINE YELLOW; GLUCOSE, URINE NEGATIVE (NEGATIVE); KETONES,URINE NEGATIVE (NEGATIVE); LEUKOCYTE ESTERASE,URINE NEGATIVE (NEGATIVE); NITRITE,URINE NEGATIVE (NEGATIVE); PROTEIN,URINE NEGATIVE (NEGATIVE); URINE SPECIFIC GRAVITY 1.017; UROBILINOGEN,URINE NEGATIVE mg/dL (<2.0)
[2020-01-24 11:42] LABS: ALBUMIN 4.1 g/dL (3.5-5.0); ALKALINE PHOSPHATASE 62 U/L (38-126); ANION GAP 5 (5-19); ASPARTATE AMINO TRANSFERASE 22 U/L (14-36); BILIRUBIN,TOTAL 0.3 mg/dL (0.2-1.3); BLOOD UREA NITROGEN 17 mg/dL (7-20); CALCIUM 8.9 mg/dL (8.4-10.2); CARBON DIOXIDE 27 mmol/L (22-30); CHLORIDE 104 mmol/L (98-107); GLUCOSE 92 mg/dL (75-110); POTASSIUM 4.6 mmol/L (3.6-5.0); TOTAL PROTEIN 7.2 g/dL (6.3-8.2)
[~2020-01-28 07:18] MED LIST changes: +CEFAZOLIN 2 GM/D5W RTU 2 GM/50 ML RTUPB IV PRN; -FENTANYL CITRATE INJ/PF 100 MCG/2 ML AMPUL ONE; +LACTATED RINGERS 1000 ML IV PRN; +LIDOCAINE 0.5% INJ-PF (5 MG/ML) 50 ML SDV SUBCUT PRN; -MIDAZOLAM 2 MG/2 ML INJ ONE; -ONDANSETRON HCL INJ/PF 4 MG/2 ML SDV ONE; -PROPOFOL INJ 200 MG/20 ML VIAL IV ONE
[2020-01-28] MEDS ORDERED: ONDANSETRON HCL INJ/PF 4 MG/2 ML SDV ONE (09:07)
[2020-01-28] MEDS ORDERED: PROPOFOL INJ 200 MG/20 ML VIAL IV ONE (09:07)
[2020-01-28] MEDS ORDERED: MIDAZOLAM 2 MG/2 ML INJ ONE (09:07)
[2020-01-28] MEDS ORDERED: FENTANYL CITRATE INJ/PF 100 MCG/2 ML AMPUL ONE (09:07)
[2020-01-28] MEDS ORDERED: DEXAMETHASONE SOD PHOSPHATE INJ 4 MG/1 ML VIAL ONE (09:07)
[2020-01-28] MEDS ORDERED: KETOROLAC TROMETHAMINE 60 MG/2 ML SDV ONE (09:07)
[2020-01-28] MEDS ORDERED: HYDROMORPHONE HCL INJ/PF 2 MG/ML AMPULE ONE (09:07)
[2020-01-28] MEDS ORDERED: CEFAZOLIN 2 GM/D5W RTU 2 GM/50 ML RTUPB IV ONE (09:21)
[2020-01-28] MEDS ORDERED: PROMETHAZINE HCL INJ 25 MG/1 ML VIAL IV PRN ×3 (09:48→12:02)
[2020-01-28] MEDS ORDERED: FENTANYL CITRATE INJ/PF 100 MCG/2 ML AMPUL IV PRN ×3 (09:48)
[2020-01-28] MEDS ORDERED: MEPERIDINE HCL/PF INJ 25 MG/1 ML DISP.SYRIN IV PRN (09:48)
[2020-01-28] MEDS ORDERED: MORPHINE SULFATE 10 MG/ML INJ IV PRN (09:48)
[2020-01-28] MEDS ORDERED: ONDANSETRON HCL INJ/PF 4 MG/2 ML SDV IV PRN (09:48)
[2020-01-28] MEDS ORDERED: OXYCODONE-ACETAMINOPHEN 5-325 MG TABLET PO PRN ×4 (09:48→12:02)
[2020-01-28] MEDS ORDERED: DIPHENHYDRAMINE HCL 50 MG/ML VIAL IV PRN (09:48)
--- NOTE | 2020-01-28 12:01 | Operative Report ---
Operative Report DATE OF SURGERY: 01/28/20 PREOPERATIVE DIAGNOSIS: Pelvic pain and dysmenorrhea POSTOPERATIVE DIAGNOSIS: Same OPERATION: Da Gordon hysterectomy and bilateral salpingectomy SURGEON: SHADY EVANS 1ST A CLASS LINEMAN: ALIDA MEHTA ANESTHESIA: GA TISSUE REMOVED OR ALTERED: Uterus cervix and tubes COMPLICATIONS: None ESTIMATED BLOOD LOSS: 50 cc INTRAOPERATIVE FINDINGS: Normal tubes and ovaries. Patient had some adhesions to the back of the cervix. PROCEDURE: Patient was taken the OR and placed in supine position. General anesthesia was induced. She is placed in dorsal lithotomy position using Bill stirrups. Her perineum abdomen vagina were prepared and draped in a sterile fashion her bladder was drained with a Quintanilla catheter. Speculum was placed in the vagina and the cervix was grasped with a tenaculum. Uterus sounded to 8 cm. A suture was placed for retraction on the cervix. The [employer] uterine manipulator was placed with a large cuff used on the cervix. The balloon was inflated. Attention was turned to the abdominal portion of the case. 2 fingerbreadths above the umbilicus and incision was made and carried down the level of fascia. The fascia was incised with curved Stratton scissors. The peritoneum was entered. The GelPort was placed. The abdomen was insufflated with CO2 gas. View of the abdomen was good. The lateral ports were placed under laparoscopic visualization. The robot was brought to the patient and docked. The pelvis was inspected. We had good visualization of the uterus. The patient was noted to have some adhesions to the back of the uterus which were mainly peritoneal in nature. Next the salpingectomy was carried out bilaterally by cauterizing the mesosalpinx and incising with scissors. The tubes were left attached to the uterus bilaterally. The ovaries appeared normal. Next the round ligaments were cauterized with bipolar and cut with monopolar aaron bilaterally. The broad ligament likewise directly next to the uterus was cauterized with bipolar cautery and cut with monopolar aaron. Staying directly next to the uterine body while elevating the uterus up in the pelvis the remainder the broad ligament was cauterized with bipolar cautery and cut with monopolar aaron. On reaching the uterine arteries these were also cauterized with bipolar cautery and cut with monopolar aaron bilaterally. The anterior leaf of the broad ligament was incised creating a bladder flap. Next staying directly next to the cervix the cardinal ligaments were cauterized bipolar cautery and cut with monopolar aaron bilaterally. At this point the uterus could be elevated well in the pelvis. The adhesions to the posterior cervix have been taken down sufficiently. A circumferential incision was then made on the V care ring. The uterus was removed through the vagina. The vaginal cuff was inspected and there was no active bleeding. The monopolar aaron were replaced with a needle transport truck driver on the right. The V lock suture was passed into the pelvis. The vaginal cuff was then closed. The surgeon started on the right side of the incision of the vaginal cuff incorporating anterior vaginal mucosa lateral vaginal sidewall posterior vaginal mucosa. The suture was looped and pulled tight. The cuff was then closed from anterior to posterior incorporating anterior anterior vaginal mucosa to posterior vaginal mucosa. Upon reaching the left angle anterior vaginal close the lateral vaginal sidewall and posterior vaginal mucosa were included. Several sutures were taken back medially. The suture was then cut and passed off out of the pelvis. Pelvis was irrigated and suctioned free of fluid there is no active bleeding noted. All pedicles were inspected including utero-ovarian uterine artery and vaginal angles. The robot was then undocked from the patient. The ports were removed. The GelPort was removed as well. The fascia at the abdominal incision was closed with a running layer of 2-0 Vicryl. Several deep sutures were brought together to close the adipose tissue at this level as well and the skin was closed with a running subcuticular 4-0 undyed Vicryl stitch. The 2 remaining lateral incisions were closed with an interrupted 4-0 undyed Vicryl stitch. Quintanilla catheter was removed and the patient was brought out of anesthesia. She was taken to recovery in stable condition.
[2020-01-28] MEDS ORDERED: ACETAMINOPHEN 325 MG TABLET PO PRN (12:02)
[2020-01-28] MEDS ORDERED: SIMETHICONE 80 MG TAB.CHEW PO PRN (12:02)
[2020-01-28] MEDS ORDERED: HYDROMORPHONE HCL INJ/PF 2 MG/ML AMPULE IV PRN (12:02)
[2020-01-28] MEDS ORDERED: ACETAMINOPHEN 1,000 MG/100 ML RTUPB IV PRN (12:02)
[2020-01-28] MEDS ORDERED: RINGERS SOLUTION,LACTATED 1,000 ML IV PRN (12:02)
[2020-01-28] MEDS ORDERED: MEASLES,MUMPS&RUBELLA VACC/PF 0.5 ML VIAL SUBCUT PRN (12:02)
[2020-01-28] MEDS ORDERED: SUCCINYLCHOLINE CHLORIDE INJ 200 MG/10 ML VIAL ONE (14:16)
[2020-01-28] MEDS ORDERED: GLYCOPYRROLATE 1 MG/5 ML VIAL ONE (14:16)
[2020-01-28] MEDS ORDERED: VECURONIUM BROMIDE INJ 10 MG VIAL IV ONE (14:16)
[2020-01-28] MEDS ORDERED: NEOSTIGMINE METHYLSULFATE 10 MG/10 ML VIAL ONE (14:16)
[2020-01-28] MEDS: KETOROLAC TROMETHAMINE INJ/PF 30 MG/1 ML SDV IV SCH (17:26)
[2020-01-28] MEDS ORDERED: DOCUSATE SODIUM 100 MG CAPSULE PO SCH (18:00)
[2020-01-29] MEDS: KETOROLAC TROMETHAMINE INJ/PF 30 MG/1 ML SDV IV SCH (02:41)
[2020-01-29 08:00] VITALS: BP 114/61
--- NOTE | 2020-01-29 08:11 | PDOC DISCHARGE SUMMARY ---
Impression - Admit/DC Date/PCP Admission Date/Primary Care Provider: SANDIP KING MD Discharge Date: 01/29/20 - Discharge Diagnosis (1) Pelvic pain Is this a current diagnosis for this admission?: Yes (2) Heavy menses Is this a current diagnosis for this admission?: Yes - Assessment Summary: underwent RATLH w/ b/l salpingectomy and ARSENIO. Normal post operative course. - Additional Information Resuscitation Status: Full Code Discharge Diet: As Tolerated Discharge Activity: Balance Activity w/Rest, No Driving, No Lifting Over 10 Pounds, No Lifting/Push/Pulling, Pelvic Rest, No tub bath Referrals: SANDIP KING MD [Primary Care Provider] - SHADY EVANS MD [ACTIVE STAFF] - 02/05/20 8:30 am (CALL THE OFFICE OF ANY QUESTIONS AND CONCERNS) Prescriptions: Oxycodone HCl/Acetaminophen [Percocet 5-325 mg Tablet] 1 tab PO Q4HP PRN #30 tablet PRN Reason: Docusate Sodium [Colace 100 mg Capsule] 100 mg PO BID #60 capsule Ibuprofen [Motrin 800 mg Tablet] 800 mg PO Q6 #60 tablet Home Medications: Dextroamphetamine/Amphetamine [Adderall 15 mg Tablet] 15 mg PO ASDIR PRN 01/24/20 Dextroamphetamine/Amphetamine [Adderall Xr 5 mg Capsule] 5 mg PO DAILY 01/24/20 Docusate Sodium [Colace 100 mg Capsule] 100 mg PO BID #60 capsule 01/29/20 Ibuprofen [Motrin 800 mg Tablet] 800 mg PO Q6 #60 tablet 01/29/20 Oxycodone HCl/Acetaminophen [Percocet 5-325 mg Tablet] 1 tab PO Q4HP PRN #30 tablet 01/29/20 History of Present Illiness History of Present Illness: LEILANI RAYA is a 39 year old female Physical Exam - Physical Exam Vital Signs: Temp Pulse Resp BP Pulse Ox 98.0 F 70 16 114/61 97 01/29/20 07:58 01/29/20 07:58 01/29/20 07:58 01/29/20 07:58 01/29/20 07:58 Intake & Output 01/28/20 01/29/20 01/30/20 06:59 06:59 06:59 Intake Total 1900 Output Total 1385 Balance 515 Weight 113.5 kg Results Laboratory Results: WBC 7.3 10^3/uL (4.0-10.5) 01/24/20 10:48 RBC 4.68 10^6/uL (3.72-5.28) 01/24/20 10:48 Hgb 13.4 g/dL (12.0-15.5) 01/24/20 10:48 Hct 38.7 % (36.0-47.0) 01/24/20 10:48 MCV 83 fl (80-97) 01/24/20 10:48 MCH 28.6 pg (27.0-33.4) 01/24/20 10:48 MCHC 34.6 g/dL (32.0-36.0) 01/24/20 10:48 RDW 14.1 % (11.5-14.0) H 01/24/20 10:48 Plt Count 241 10^3/uL (150-450) 01/24/20 10:48 Sodium 136.3 mmol/L (137-145) L 01/24/20 10:48 Potassium 4.6 mmol/L (3.6-5.0) 01/24/20 10:48 Chloride 104 mmol/L (98-107) 01/24/20 10:48 Carbon Dioxide 27 mmol/L (22-30) 01/24/20 10:48 Anion Gap 5 (5-19) 01/24/20 10:48 BUN 17 mg/dL (7-20) 01/24/20 10:48 Creatinine 0.75 mg/dL (0.52-1.25) 01/24/20 10:48 Est GFR ( Amer) > 60 (>60) 01/24/20 10:48 Est GFR (MDRD) Non-Af > 60 (>60) 01/24/20 10:48 Glucose 92 mg/dL (75-110) 01/24/20 10:48 Calcium 8.9 mg/dL (8.4-10.2) 01/24/20 10:48 Total Bilirubin 0.3 mg/dL (0.2-1.3) 01/24/20 10:48 Direct Bilirubin 0.0 mg/dL (0.0-0.4) 01/24/20 10:48 Neonat Total Bilirubin Not Reportable 01/24/20 10:48 Neonat Direct Bilirubin Not Reportable 01/24/20 10:48 Neonat Indirect Bili Not Reportable 01/24/20 10:48 AST 22 U/L (14-36) 01/24/20 10:48 ALT 22 U/L (<35) 01/24/20 10:48 Alkaline Phosphatase 62 U/L (38-126) 01/24/20 10:48 Total Protein 7.2 g/dL (6.3-8.2) 01/24/20 10:48 Albumin 4.1 g/dL (3.5-5.0) 01/24/20 10:48 Urine Color YELLOW 01/24/20 10:48 Urine Appearance CLEAR 01/24/20 10:48 Urine pH 7.0 (5.0-9.0) 01/24/20 10:48 Ur Specific [place] 1.017 01/24/20 10:48 Urine Protein NEGATIVE mg/dL (NEGATIVE) 01/24/20 10:48 Urine Glucose (UA) NEGATIVE mg/dL (NEGATIVE) 01/24/20 10:48 Urine Ketones NEGATIVE mg/dL (NEGATIVE) 01/24/20 10:48 Urine Blood NEGATIVE (NEGATIVE) 01/24/20 10:48 Urine Nitrite NEGATIVE (NEGATIVE) 01/24/20 10:48 Urine Bilirubin NEGATIVE (NEGATIVE) 01/24/20 10:48 Urine Urobilinogen NEGATIVE mg/dL (<2.0) 01/24/20 10:48 Ur Leukocyte Esterase NEGATIVE (NEGATIVE) 01/24/20 10:48 Urine WBC (Auto) 0 /HPF 01/24/20 10:48 Urine RBC (Auto) 1 /HPF 01/24/20 10:48 Urine Bacteria (Auto) TRACE /HPF 01/24/20 10:48 Squamous Epi Cells Auto 3 /HPF 01/24/20 10:48 Urine Mucus (Auto) RARE /LPF 01/24/20 10:48 Urine Ascorbic Acid NEGATIVE (NEGATIVE) 01/24/20 10:48 Urine HCG, Qual NEGATIVE (NEGATIVE) 01/28/20 07:45 COVID-19 Source NASOPHARYNGEAL 01/24/20 10:45 COVID-19 (SOY) NOT DETECTED 01/24/20 10:45 Blood Type Cancelled 01/29/20 06:20 Antibody Screen POSITIVE 01/26/20 08:26 Antibody Identification Anti-K 01/26/20 08:26 Screen Cancelled 01/29/20 06:20 Stroke Is this a Stroke Patient?: No Acute Heart Failure - Is this a Heart Failure Patient?: No
[2020-01-29] MEDS ORDERED: IBUPROFEN 800 MG TABLET PO SCH (18:00)
== END 2020-01-29 09:24 | disposition home or self-care (01) ==
LOC: OROUT 07:18 → 2N 14:45 → OROUT 01-29 09:24
PROVIDERS: ATTEND Obstetrics & Gynecology
DX: N93.9 Abnormal uterine and vaginal bleeding, unspecified (principal); R10.2 Pelvic and perineal pain; N94.6 Dysmenorrhea, unspecified; N72 Inflammatory disease of cervix uteri; N84.0 Polyp of corpus uteri; N83.8 Other noninflammatory disorders of ovary, fallopian tube and broad ligament; E66.9 Obesity, unspecified; Z91.040 Latex allergy status; Z03.818 Encounter for observation for suspected exposure to other biological agents ruled out
CPT/HCPCS: 58571; S2900; 36415; 80053; 81001; 81025; 840; 85027; 86850; 86870; 86900; 86901; 87635; 88307; 94799; C9803; J0330; J0690; J1100; J1170; J1885; J2250; J2405; J2550; J2704; J2710; J3010; J3490; J7120

== ENCOUNTER 2020-02-28 08:29 | Day surgery (SDC) | payer MEDICAID ==
[2020-02-25 09:43] LABS: HEMATOCRIT 39.9 % (36.0-47.0); HEMOGLOBIN 13.6 g/dL (12.0-15.5); MEAN CORPUSCULAR HEMOGLOBIN 28.3 pg (27.0-33.4); MEAN CORPUSCULAR VOLUME 83 fl (80-97); PLATELET COUNT 210 10^3/uL (150-450); RED BLOOD COUNT 4.79 10^6/uL (3.72-5.28); RED CELL DISTRIBUTION WIDTH 14.6 % (11.5-14.0)
[2020-02-25 10:03] LABS: ALBUMIN 4.2 g/dL (3.5-5.0); ALKALINE PHOSPHATASE 64 U/L (38-126); ANION GAP 7 (5-19); ASPARTATE AMINO TRANSFERASE 21 U/L (14-36); BILIRUBIN,TOTAL 0.5 mg/dL (0.2-1.3); BLOOD UREA NITROGEN 15 mg/dL (7-20); CALCIUM 8.9 mg/dL (8.4-10.2); CARBON DIOXIDE 25 mmol/L (22-30); CHLORIDE 105 mmol/L (98-107); GLUCOSE 128 mg/dL (75-110); POTASSIUM 4.1 mmol/L (3.6-5.0); TOTAL PROTEIN 7.1 g/dL (6.3-8.2)
[2020-02-25 10:11] LABS: AMYLASE < 30 U/L (30-110)
[~2020-02-28 08:29] MED LIST changes: +ACETAMINOPHEN 325 MG TABLET PO PRN; +CEFAZOLIN 1 GM/D5W RTU 1 GM/50 ML RTUPB IV ONE; +CEFAZOLIN 1 GM/D5W RTU 1 GM/50 ML RTUPB IV PRN; -CEFAZOLIN 2 GM/D5W RTU 2 GM/50 ML RTUPB IV PRN; +DEXAMETHASONE SOD PHOSPHATE INJ 4 MG/1 ML VIAL ONE; +FENTANYL CITRATE INJ/PF 100 MCG/2 ML AMPUL ONE; +KETOROLAC TROMETHAMINE 60 MG/2 ML SDV ONE; +METRONIDAZOLE 500 MG/NS RTU 500 MG/100 ML RTUPB IV ONE; +METRONIDAZOLE 500 MG/NS RTU 500 MG/100 ML RTUPB IV PRN; +MIDAZOLAM 2 MG/2 ML INJ ONE; +ONDANSETRON HCL INJ/PF 4 MG/2 ML SDV ONE; +PROPOFOL INJ 200 MG/20 ML VIAL IV ONE
[2020-02-28] MEDS ORDERED: BUPIVACAINE INJ/PF LIPOSOME/PF 266 MG/20 ML SDV ONE (10:16)
[2020-02-28] MEDS ORDERED: PROMETHAZINE HCL INJ 25 MG/1 ML VIAL IV PRN (11:32)
[2020-02-28] MEDS ORDERED: MORPHINE SULFATE 10 MG/ML INJ IV PRN (11:32)
[2020-02-28] MEDS ORDERED: MEPERIDINE HCL/PF INJ 25 MG/1 ML DISP.SYRIN IV PRN (11:32)
[2020-02-28] MEDS ORDERED: DIPHENHYDRAMINE HCL 50 MG/ML VIAL IV PRN (11:32)
[2020-02-28] MEDS ORDERED: FENTANYL CITRATE INJ/PF 100 MCG/2 ML AMPUL IV PRN ×3 (11:32)
--- NOTE | 2020-02-28 12:05 | Operative Report ---
Nonrecallable Operative Report DATE OF SURGERY: 02/28/20 PREOPERATIVE DIAGNOSIS: Symptomatic cholelithiasis POSTOPERATIVE DIAGNOSIS: Symptomatic cholelithiasis OPERATION: Laparoscopic cholecystectomy SURGEON: DELMAR BENTLEY AIR GRINDER: ANNI MCNAMARA ANESTHESIA: GA TISSUE REMOVED OR ALTERED: Gallbladder COMPLICATIONS: None ESTIMATED BLOOD LOSS: 50 cc INTRAOPERATIVE FINDINGS: See note PROCEDURE: After obtaining informed consent, the patient was taken to the operating room. General Anesthesia was induced; the arms were extended, and the abdomen was exposed, and prepped and draped in a sterile fashion. Instrumentation was set up for laparoscopic cholecystectomy. Surgical plan and surgical timeout were conducted. A vertical incision was made above the umbilicus, and a verres needle was inserted uneventfully into the peritoneal cavity. Pneumoperitoneum was established. The verres needle was removed and a 10 mm trocar was inserted and a 10 mm laparoscope was inserted. Visualization of the peritoneal cavity confirmed safe uneventful entry. Under direct visualization 3 additional 5 mm ports were established, one in the subxiphoid position and second in the subcostal position. Visualization of the hepatobiliary anatomy revealed no anatomic variations. A grasper was placed on the fundus of the gallbladder and the gallbladder is elevated over the right surface of the liver; a second grasper was used to grasp the infundibulum of the gallbladder. The neck of the gallbladder and junction with the cystic duct was dissected out. The Cystic artery was in its usual location medial and cephalad to the cystic duct. The cystic artery was surrounded with a right angle clamp, clipped twice proximally and divided with laparoscopic scissors. We now opened the triangle of Calot by dividing the peritoneal reflection on both the medial and lateral sides of the cystic duct infundibular junction. The critical view was obtained. We now milked the cystic duct of any possible stones, clipped the cystic duct approximately 2 times once distally and divided with scissors. The gallbladder was now removed from the undersurface of the liver using hook cautery dissection. Graspers were repositioned and the gallbladder was removed uneventfully from the abdominal cavity through the super umbilical port site incision. The specimen was examined, then passed off to pathology for permanent analysis. We returned to the peritoneal cavity check for bleeding, and evidence of bile leak, and there was none. We Confirmed satisfactory placement of clips on cystic duct and cystic artery were secured . At this point we felt the operation was complete. The subcutaneous tissue was then anesthetized with quarter percent Marcaine Sponge and needle counts are correct. All ports removed under direct visualization pneumoperitoneum evacuated, and 5 mm port wounds closed with 3-0 Vicryl suture, benzoin and Steri-Strips. The patient was extubated, and taken to the recovery room in stable condition. Estimated blood loss was 25 cc Anni Myers was present for the entire operation for help with wound retraction wound closure
--- NOTE | 2020-02-28 12:09 | Discharge Summary ---
Discharge Summary (SDC) - Discharge Final Diagnosis: Symptomatic cholelithiasis Date of Surgery: 02/28/20 Discharge Date: 02/28/20 Condition: Good Treatment or Instructions: Okay to shower tomorrow Steri-Strips can get wet but should not be soaked Prescriptions: Oxycodone HCl/Acetaminophen [Percocet 7.5-325 mg Tablet] 1 each PO Q6HP PRN #15 tablet PRN Reason: Referrals: SANDIP KING MD [Primary Care Provider] - Discharge Diet: As Tolerated Discharge Activity: Activity As Tolerated, No Lifting Over 10 Pounds Report the Following to Your Physician Immediately: Yellow Skin, Fever over 101 Degrees, Unusual Bleeding
[2020-02-28] MEDS ORDERED: OXYCODONE-ACETAMINOPHEN 5-325 MG TABLET PO PRN (12:12)
[2020-02-28] MEDS ORDERED: FENTANYL CITRATE INJ/PF 100 MCG/2 ML AMPUL ONE (12:22)
[2020-02-28] MEDS ORDERED: OXYCODONE-ACETAMINOPHEN 5-325 MG TABLET ONE (13:05)
[2020-02-28 14:24] VITALS: BP 138/84
[2020-02-28] MEDS ORDERED: SUCCINYLCHOLINE CHLORIDE INJ 200 MG/10 ML VIAL ONE (14:37)
[2020-02-28] MEDS ORDERED: ROCURONIUM BROMIDE INJ 50 MG/5 ML VIAL IV ONE (14:37)
== END 2020-02-28 14:05 | disposition home or self-care (01) ==
LOC: OROUT 08:29
PROVIDERS: ATTEND Surgery
DX: K81.1 Chronic cholecystitis (principal); Z03.818 Encounter for observation for suspected exposure to other biological agents ruled out; Z79.899 Other long term (current) drug therapy; Z91.040 Latex allergy status; F98.8 Other specified behavioral and emotional disorders with onset usually occurring in childhood and adolescence; Z88.8 Allergy status to other drugs, medicaments and biological substances
CPT/HCPCS: 47562; 86900; 86901; 36415; 86870; 86850; 82150; 85027; 87635; 80076; 80048; 88304 ×2; J2250; J0690; J3490 ×2; J1885; J3010; J0330; J2405; J2704; C9290; C9803; 790; J1100